=== PATIENT | female | born 1965 | race Caucasian/White ===

== ENCOUNTER 2022-12-02 07:06 | Emergency (ER) | payer OTHER, SELFPAY ==
[2022-12-02 07:38] VITALS: BP 128/73; PULSE 69; RESP 18; TEMP 36.6; O2SAT 100; BMI 22.7
--- NOTE | 2022-12-02 07:59 | PC.NURSE ---
Pt arrives with left hand ring finger swelling from bee sting. RNs removed ring with ring cutter, physician at bedside. Pt tolerated procedure well.
--- NOTE | 2022-12-02 08:03 | ED.EXTPRO ---
HPI - Extremity Problem General Chief complaint: Extremity Problem,Nontraumatic Stated complaint: bee sting, finger swollen Time Seen by Provider: 12/02/22 08:02 Source: patient Mode of arrival: Ambulatory History of Present Illness HPI Narrative: Patient here with . Has swelling to the left ring finger due to a bee sting that occurred 2 nights ago. Her rings on the finger has caused swelling. This was immediately removed by nursing staff when she arrived. Patient feels much better after removal of the ring. Finger is warm soft and pink. No necrosis. No cyanosis. Related Data Home Medications Medication Instructions Recorded Confirmed calcium carbonate 500 mg calcium 500 mg PO QD-QID 07/12/18 07/12/18 (1,250 mg) capsule (Calci-Mix) iodoral PO 07/12/18 07/12/18 multivitamin PO 07/12/18 07/12/18 psyllium husk 0.52 gram capsule 0.52 gram PO DAILY 07/12/18 07/12/18 (Fiber Laxative (psyllium husk)) Previous Rx's Medication Instructions Recorded azithromycin 250 mg tablet See Rx Instructions PO .COMPLEX #6 07/12/18 tabs famotidine 20 mg tablet 20 mg PO BID #14 tabs 12/02/22 methylprednisolone 4 mg tablets in See Rx Instructions PO .COMPLEX 12/02/22 a dose pack (Medrol (Daniel)) #21 ea Allergies Allergy/AdvReac Type Severity Reaction Status Date / Time No Known Drug Allergies Allergy Verified 07/12/18 16:30 Review of Systems Review of Systems Narrative: GENERAL: negative chills, fatigue, malaise, fever, sweats. HEENT: negative sinus pain, ear pain, sore throat RESPIRATORY: negative dyspnea, cough CARDIOVASCULAR: negative chest pain, palpitations GASTROINTESTINAL: negative nausea, vomiting, abdominal pain : negative dysuria, frequency, hematuria MUSCULOSKELETAL: negative muscle or bony pain SKIN: negative rash, skin lesions, positive skin injury NEUROLOGIC: negative weakness, numbness ROS Unobtainable: All systems reviewed & are unremarkable except as noted in HPI and below Patient History Social History Smoking Status: Never smoker Smoking Status: Never smoker Exam Narrative Exam Narrative: GENERAL: in no distress, not toxic not dyspneic HEAD: Normocephalic. EYES: Pupils equal round ENT: Mucous membranes moist. NECK: Trachea midline. CARDIOVASCULAR: Regular rate and rhythm RESPIRATORY: Clear to auscultation. Breath sounds equal bilaterally. No wheezes, rales, or rhonchi. EXTREMITIES: No gross deformities. Examination of left hand. After removal the left ring finger jewelry, rings, patient feels the pressure much better. Fingers warm soft and pink with brisk cap refills light touch intact to finger. No red streaking. No stinger sac seen. No induration. No cellulitis NEURO: AOx4. SKIN: Warm and dry PSYCH: Not anxious, is cooperative Initial Vital Signs Initial Vital Signs: Vital Signs Temperature 97.9 F 12/02/22 07:38 Pulse Rate 69 12/02/22 07:38 Respiratory Rate 18 12/02/22 07:38 Blood Pressure 128/73 12/02/22 07:38 Pulse Oximetry 100 12/02/22 07:38 Oxygen Delivery Method Room Air 12/02/22 07:38 Course Orders Ordered: Discontinued Medications Prednisone (Prednisone 20 Mg Tablet) 40 mg PO NOW ONE Stop: 12/02/22 08:03 Last Admin: 12/02/22 08:21 Dose: 40 mg Documented By: EMERY Vital Signs Vital signs: Vital Signs - 8 hr 12/02/22 07:38 Temperature 97.9 F Pulse Rate 69 Respiratory Rate 18 Blood Pressure 128/73 Pulse Oximetry 100 Oxygen Delivery Method Room Air MDM - Extremity (Nontraumatic) MDM Narrative Medical decision making narrative: Patient here with . Has swelling to the left ring finger due to a bee sting that occurred 2 nights ago. Her rings on the finger has caused swelling. This was immediately removed by nursing staff when she arrived. Patient feels much better after removal of the ring. Finger is warm soft and pink. No necrosis. No cyanosis. After history and exam prednisone and removal of the ring MDM CC: Finger swelling bee sting Complicating co-morbidities: Bee sting Data collected from: Patient and Medical records reviewed: No recent visit for this complaint Differential considered: Includes but not limited to insect sting/bee sting/Jewel reconstruction Exam documented above, pertinent findings include: Finger swelling from ring on the finger, relief with removal. Treatments: Prednisone Re-evaluations: Patient feels much better after removal of the ring. Return precautions reviewed with her. She does desire to have the steroid pack. Not toxic at discharge Discussion: Appropriate for discharge home. No skin injury from the ring that was causing swelling to the finger. Had significant relief after removal of the ring. Steroids have been started. Return precautions reviewed. She desires discharge home Diagnosis: Bee sting/joule reconstruction Discharge Plan Departure Patient Disposition: Home Clinical Impression: Accidental bee sting, Constrictive jewelry of finger Instructions: DI for Insect Bites and Stings Activity Restrictions/Additional Instructions: See family doctor within a week for re-evaluation. Continue steroid pack tomorrow. Prescription for steroid pack and Pepcid has been sent to your pharmacy to filler picker today. Use cool packs to finger to reduce swelling. Please keep finger and hand elevated when at rest to reduce swelling. Return if worse if any questions or concerns Prescriptions: New famotidine 20 mg tablet 20 mg PO BID Qty: 14 0RF methylprednisolone [Medrol (Daniel)] 4 mg tablets,dose pack See Rx Instructions .ROUTE .COMPLEX Qty: 21 0RF Rx Instructions: orally per package directions No Action multivitamin tablet PO Calci-Mix 500 mg calcium (1,250 mg) capsule 500 mg PO QD-QID psyllium husk [Fiber Laxative (psyllium husk)] 0.52 gram capsule 0.52 gram PO DAILY iodoral PO azithromycin 250 mg tablet See Rx Instructions PO .COMPLEX Qty: 6 0RF Rx Instructions: take 500 mg today (day 1), then 250 mg for 4 days (days 2-5) PO Stand Alone Forms: Patient Portal/API
[2022-12-02] MEDS: predniSONE 20 MG TABLET 40 MG PO (08:21)
== END 2022-12-02 08:30 | disposition home or self-care (01) ==
PROVIDERS: Emergency Provider Emergency Medicine
DX: T63.441A Toxic effect of venom of bees, accidental (unintentional), initial encounter (principal); W49.04XA Ring or other jewelry causing external constriction, initial encounter
CPT/HCPCS: 99283